=== PATIENT | female | born 1990 | race Caucasian/White ===

== ENCOUNTER 2018-12-26 10:03 | Emergency (ER) | payer SELFPAY ==
[~2018-12-26] VITALS: Ht 157.5 cm; Wt 68.0 kg
[2018-12-26 10:25] VITALS: BP 138/82
[2018-12-26 10:39] LABS: Urine Bacteria NONE SEEN /hpf (None Seen); Urine Blood 2+ /uL (Negative); Urine Mucus FEW (None Seen); Urine Specific Gravity 1.016 (1.001-1.035); Urine WBC 1275 /hpf (0 - 5); Urine WBC Clumps PRESENT /hpf (None Seen)
[2018-12-26] MEDS ORDERED: PHENAZOPYRIDINE HCL 100 MG TAB PO ONE (10:45)
[2018-12-26] MEDS ORDERED: KETOROLAC TROMETH 60MG/2ML VIAL IM ONE (10:45)
[2018-12-26] MEDS ORDERED: cefTRIAXone SOD 1,000 MG VL IM ONE (10:45)
== END 2018-12-26 11:13 | disposition home or self-care (01) ==
LOC: ER 10:03
DX: N12 Tubulo-interstitial nephritis, not specified as acute or chronic (principal)
CPT/HCPCS: 81001; 81025; 87086; 87088; 87186; 96372; 99283; J0696; J1885